=== PATIENT | female | born 1975 | race Caucasian/White ===

== ENCOUNTER 2017-08-03 05:42 | Emergency (ER) | payer MEDICAID ==
--- NOTE | 2017-08-03 06:35 | OBHP ---
Datetime: 08/03/2017 06:29 IP Adm Impression: Term, intrauterine ; No Active Labor IP Admit Plan: Discharge home Admit Comment, IP Provider: 42 @ 39 3 with hx of GDMA1 and Asthma presents today with compl aints of contractions. POBHx: SAB x 2, TOP x 1 PMHx: asthma, GDMA1 PSHX: none Social: negative x 3 ROS: negative. SVE: closed/long/hi A/P: early labor 1) pt was closed and genet q12 minutes. Pt advisd to return when contraction [id number]. 2) Discharge home. Pelvic Type - PN: Adequate Extremities - PN: Normal Abdomen - PN: Normal Back - PN: Normal Breast - PN: Normal Lungs - PN: Normal Heart - PN: Normal Thyroid - PN: Normal Neurologic - PN: Normal HEENT - PN: Normal General - PN: Normal Contraction Comments Provider: irregular Comments, ACOG Physical Exam: SVE: closed/long/hi EGA AdmitDate IP: 39.3 IP Chief Complaint: Uterine contractions Dilatation, Provider: closed Effacement, Provider: 0 Station, Provider: -3 Genitourinary Exam: Normal DTRs - PN: Normal
[2017-08-03 11:02] VITALS: BP 125/87; PULSE 104; TEMP 97.7
== END 2017-08-03 06:36 | disposition home or self-care (01) ==
LOC: C.EROB 05:42
DX: O47.1 False labor at or after 37 completed weeks of gestation (principal); Z3A.39 39 weeks gestation of pregnancy

== ENCOUNTER 2017-08-03 19:32 | Inpatient (IN) | payer MEDICAID ==
--- NOTE | 2017-08-03 20:15 | OBADHP ---
Datetime: 08/03/2017 20:09 Admit Comment, IP Provider: 40 @ 39 3/7 with hx of GDMA1 and Asthma presents today with compl aints of contractions everu 5 min increasingt intiensyt and fruqent, 12/30, dnies lof, vb, +FM. twas seen tory er today adn dxc home POBHx: SAB x 2, TOP x 1 PMHx: asthma, GDMA1 PSHX: none Social: negative x 3 ROS: negative. SVE: 03/29/0-2 A/P:42 y/o P0 @ 39.3 wks GA GDMA1 in early labr requesting therpeatuic rest -npo, ivf -iv pian mediation -reevlatin -nst, bpp -admissin labs -ivh Pelvic Type - PN: Adequate Extremities - PN: Normal Abdomen - PN: Normal Back - PN: Normal Breast - PN: Not Done Lungs - PN: Normal Heart - PN: Normal Thyroid - PN: Not Done Neurologic - PN: Normal HEENT - PN: Normal General - PN: Normal Presentation-Admit: Vertex FHR - Baseline A Provider: 150 Membranes, Provider: Intact Contraction Comments Provider: q 5 min Gestation - Est Wks by US: 39.3 Vital Signs Provider: Reviewed; Within Normal Limits IP Chief Complaint: Uterine contractions NICHD Variability Prov Fetus A: Moderate 6-25bpm FHR Category Provider Fetus A: Category I NICHD Decel Fetus A IP Provider: None Dilatation, Provider: 1 Effacement, Provider: 70 Station, Provider: -2 Genitourinary Exam: Normal DTRs - PN: Normal EGA AdmitDate IP: 39.3 IP Adm Impression: Term, intrauterine IP Admit Plan: Admit to unit Datetime: 08/03/2017 06:29 Comments, ACOG Physical Exam: SVE: closed/long/hi
[2017-08-03 20:16] VITALS: BMI 36.6
[2017-08-03] MEDS ORDERED: Lactated Ringer's 1,000 ML IV ONE (20:27)
[2017-08-03 20:40] LABS: BASO % 0.2 % (0.0-2.0); EOS # 0.1 K/uL (0.0-0.7); EOS % 0.5 % (0.0-4.0); HEMOGLOBIN 13.6 g/dL (11.0-16.0); LYMPH # 1.9 K/uL (1.0-4.3); LYMPH % 14.1 % (20.0-40.0); MEAN CORPUSCULAR HEMOGLOBIN 28.3 pg (27.0-31.0); MEAN CORPUSCULAR HGB CONC 34.1 g/dL (33.0-37.0); MEAN PLATELET VOLUME 7.9 fL (7.2-11.7); MONO # 0.7 K/uL (0.0-0.8); MONO % 5.3 % (0.0-10.0); NEUT % 79.9 % (50.0-75.0); NRBC % 0.2 % (0.0-2.0); RBC 4.83 Mil/uL (3.80-5.20); RED CELL DISTRIBUTION WIDTH 15.9 % (11.5-14.5); WHITE BLOOD COUNT 13.8 K/uL (4.8-10.8)
[2017-08-03 20:45] LABS: SQUAMOUS EPITHIAL 1 /hpf (0-5); URINE BILIRUBIN NEGATIVE (NEGATIVE); URINE BLOOD NEGATIVE (NEGATIVE); URINE CLARITY Clear (Clear); URINE COLOR Yellow (YELLOW); URINE GLUCOSE (UA) NORMAL (Normal); URINE LEUKOCYTE ESTERASE NEG Leu/uL (Negative); URINE PROTEIN NEGATIVE (NEGATIVE); URINE UROBILINOGEN NORMAL mg/dL (0.2-1.0)
[2017-08-03 20:52] LABS: ALBUMIN 3.3 g/dL (3.5-5.0); ALT/SGPT 24 U/L (9-52); AST/SGOT 21 U/L (14-36); BLOOD UREA NITROGEN 11 mg/dL (7-17); CALCIUM 9.4 mg/dl (8.6-10.4); GFR AFRICAN-AMERICAN > 60; GFR NON-AFRICAN AMERICAN > 60
[2017-08-03] MEDS ORDERED: DiphenhydrAMINE 50 mg/ml Inj IVP STA (21:13)
[2017-08-03] MEDS ORDERED: Nalbuphine 20 mg/ml Inj (1 ml) IVP PRN (21:15)
[2017-08-03] MEDS ORDERED: Nalbuphine 20 mg/ml Inj (1 ml) ONE (21:19)
[2017-08-04] MEDS ORDERED: Fentanyl/Bupivacaine HCl 250 ML EPI ONE (02:55)
--- NOTE | 2017-08-04 05:46 | OBPN ---
Datetime: 08/04/2017 05:40 IP Progress Impression: Normal progression of labor IP Progress Plan: Continue present management Membranes, Provider: Ruptured Contraction Comments Provider: 5 min FHR - Baseline A Provider: 150 Gestation - Est Wks by US: 39.4 Presentation-Admit: Vertex IP Progress Note Comment: pt seen ane edaemiend s/p epidural EFM: 150/mod angie period of min varilayt mproved with ivh, left lateral decubmitus postin TOOC: q 5 min A/P P0 @ 39.4 wks GA GDMA 1 in active labor -cont current managmeent Vital Signs Provider: Reviewed; Within Normal Limits FHR Category Provider Fetus A: Category I NICHD Variability Prov Fetus A: Moderate 6-25bpm Dilatation, Provider: 8 Effacement, Provider: 90 Station, Provider: 0 Datetime: 08/03/2017 20:09 NICHD Decel Fetus A IP Provider: None
[2017-08-04] MEDS ORDERED: Lactated Ringer's 1,000 ML IV SCH (07:30)
[2017-08-04] MEDS ORDERED: Lidocaine 2% MPF (5 ml) Inj ONE (08:48)
[2017-08-04] MEDS ORDERED: Oxytocin 30 UNIT 30 UNITS/500 ML BAG IV PRN (09:54)
[2017-08-04] MEDS ORDERED: Oxytocin 30 UNIT 30 UNITS/500 ML BAG IV ONE (09:57)
--- NOTE | 2017-08-04 12:04 | OBPN ---
Datetime: 08/04/2017 11:59 IP Progress Impression: Normal progression of labor IP Procedures: Sterile Vag Exam IP Progress Plan: Continue present management; Anticipate Vaginal Delivery IP Progress Note Comment: Patient was initially seen and examined at 0730 hours: at that tme very co mfortable - S/P epidrual Cervical exam at 0730 hours: 10cm/100/0 station. F.S. = 107 mg/dL Decision was made to augment with pitocin, this was started at 0955 hours Patient now pushing. Assessment: 42 y.o. P0, 39w 4d, A1GDM. Nearing end of Stage 1 of labor. Category 1 tracing. Clinic ally stable. Plan: 1) Anticipate vaginal delivery
--- NOTE | 2017-08-04 14:10 | OBDS ---
DELIVERY PERSONNEL Delivery Doctor: Delbert Sneed MD Snaker: Yajaira Mulligan RN MATERNAL INFORMATION Delivery Anesthesia: Epidural Medications in Delivery: pitocin 20units Estimated Blood Loss (ml): 350 Placenta Cultured: No Maternal Complications: Other Other Maternal Complications: GDM diet control Provider Comments: Uncomplicated vaginal delivery, live female, SRIDEVI, weight 7lb 8oz, tight nuchal co rd x 1 - doubly clamped and cut; 's 9/9. handed to ordnance equipment worker in attendance. Spontaneou s delivery of placenta; grossly normal, 3 vessel cord. Uterine exploration performed; uterus contrac evangelist and firm. Cervix, vagina and perineum inspected - no extensions - repair as above. Patient procedure well. Hemostasis assured. Mother, infant and father bonding. All in stable. cond ition LABOR SUMMARY EDC: 08/07/2017 00:00 No. Babies in Womb: 0 Attempted: No Labor Anesthesia: Epidural LABOR INFORMATION Onset of Labor: 08/04/2017 01:38 Complete Dilatation: 08/04/2017 07:30 Oxytocin: Augmentation Group B Beta Strep: Negative Steroids Given: None Reason Steroids Not Administered: Not Applicable MEMBRANES Membranes Rupture Method: Spontaneous Rupture of Membranes: 08/04/2017 05:39 Length of Rupture (hrs): 6.57 Amniotic Fluid Color: Light Meconium Amniotic Fluid Amount: Small Amniotic Fluid Odor: Normal STAGES OF LABOR Stage 1 hrs: 5 Stage 1 min: 52 Stage 2 hrs: 4 Stage 2 min: 43 Stage 3 hrs: 0 Stage 3 min: 13 Total Time in Labor hrs: 10 Total Time in Labor min: 48 VAGINAL DELIVERY Episiotomy: None Laceration Extension: Second Degree Laceration Type: Perineal; Vaginal Other Laceration: vaginal - left lateral Laceration Repair: Yes Laceration Repair Note: 2-0 chromic - vaginal/ perineal; 3-0 chromic - skin in routine fashion. Hem ostasis assured. Patient tolerated procedure well. In stable condition Initial Vag Sponge Count: 10 Final Vag Sponge Count: 10 Initial Vag Sharps Count: 0 Final Vag Sharps Count: 3 Sponge Count Correct: Yes Sharps Count Correct: Yes Count Comment: Correct BABY A INFORMATION Delivery Date/Time: 08/04/2017 12:13 Method of Delivery: Vaginal Born in Route : No : N/A Forceps: N/A Vacuum Extraction: N/A Shoulder Dystocia : No SHOULDER DYSTOCIA BABY A Infant Delivery Date/Time: 08/04/2017 12:13 PRESENTATION/POSITION BABY A Presentation: Cephalic Cephalic Presentation: Vertex Vertex Position: Right Occipital Anterior Breech Presentation: N/A PLACENTA INFORMATION BABY A Placenta Delivery Time : 08/04/2017 12:26 Placenta Method of Delivery: Spontaneous Placenta Status: Delivered SCORES BABY A Heart Rate 1 min: >100 bpm Resp Effort 1 min: Good Cry Reflex Irritability 1 min: Cough or Sneeze or Pulls Away Muscle Tone 1 min: Active Motion Color 1 min: Body [place], Extremities Blue SCORE 1 MIN: 9 Heart Rate 5 min: >100 bpm Resp Effort 5 min: Good Cry Reflex Irritability 5 min: Cough or Sneeze or Pulls Away Muscle Tone 5 min: Active Motion Color 5 min: Body [place], Extremities Blue SCORE 5 MIN: 9 INFANT INFORMATION BABY A Gestational Age at Delivery: 39.4 Gestational Status: Term Infant Outcome : Liveborn Condition : Stable Sex: Female IDENTIFICATION/MEDS BABY A ID Band Number: [id number] ID Band Location: Left Leg; Left Arm Sensor Applied: Yes Sensor Number: [id number] Sensor Location : Cord Clamp Vitamin K Given : Not Given Erythromycin Given: Not Given WEIGHT/LENGTH BABY A Infant Birthweight (gms): 3390 Weight (lb): 7 Weight (oz): 8 Infant Length Inches: 20.00 Length cms: 50.8 CORD INFORMATION BABY A No. Cord Vessels: 3 Nuchal Cord : Around Neck x1, Tight Cord Blood Taken: Yes Suction: Mouth; Nose ASSESSMENT BABY A Infant Complications: Decreased Variability; Multiple Late Decels; Meconium
[2017-08-05 08:22] LABS: HEMOGLOBIN 11.7 g/dL (11.0-16.0); MEAN CELL VOLUME 83.8 fL (81.0-99.0); MEAN CORPUSCULAR HEMOGLOBIN 28.7 pg (27.0-31.0); MEAN CORPUSCULAR HGB CONC 34.3 g/dL (33.0-37.0); MEAN PLATELET VOLUME 7.6 fL (7.2-11.7); RBC 4.07 Mil/uL (3.80-5.20); RED CELL DISTRIBUTION WIDTH 15.6 % (11.5-14.5); WHITE BLOOD COUNT 17.6 K/uL (4.8-10.8)
[2017-08-05 08:53] VITALS: RESP 20
[2017-08-05] MEDS: Multiple Vitamins Tab PO SCH (10:22)
[2017-08-05] MEDS: Benzocaine/Menthol 20%-0.5% Topical Spray (60 ml) TOP SCH ×2 (13:00→17:39)
--- NOTE | 2017-08-05 17:05 | OBPPN ---
Datetime: 08/05/2017 15:26 PP Pain Prov: Within normal limits PP Nausea Prov: Denies PP Flatus Prov: Yes PP BM Prov: No PP Heart Prov: Normal PP Lungs Prov: Normal PP Abdomen/Uterus Prov: Normal PP Lochia Prov: Normal PP Extremities Prov: Normal PP Progress Prov: Normal PP Impression Prov: Normal progression PP Plan Prov: Continue present management PP Progress Note Prov: Patient was seen and examined at bedside. Patient reports that she is doing w ell with pain well-controlled. Patient admits to moderate lochia, passing flatus urinating without di fficulties and left leg heaviness (2/2 to epidural effect). Patient is ambulating and tolerating diet . Patient denies fever, chills, nausea, vomiting, abdominal pain, dizziness and calf tenderness. Physical Exam: Gen: NAD, AAOx3 Cardio: RRR, +S1, S2 Pulm: CTA bilaterally Abdomen: Soft, non-tender, +BS , fundus is firm and below the umbilicus Ext: No cyanosis, no clubbing and no edema VS: WNL as stated in VS table above Labs: 13.8>13.6/40.1<201 17.6>11.7/34.1<200 B-, Rubella immune A/P 42y/o at 39 3/7 weeks GDMA1, who is now , S/P , PPD #1 1. Afebrile, stable 2. Pain is well-controlled 3. Encourage PO hydration and ambulation 4. Encourage 5. Continue present management 6. Female hyperbilirubemia, with triple therapy treatment 7. Possible D/C tomorrow Plans and management discussed with attending, Dr. Aubrey Valdes, DO, PGY-1 Vital Signs Provider PP: Reviewed; Within Normal Limits
[2017-08-06 08:29] LABS: BASO % 0.3 % (0.0-2.0); EOS # 0.2 K/uL (0.0-0.7); EOS % 1.9 % (0.0-4.0); HEMOGLOBIN 10.8 g/dL (11.0-16.0); LYMPH # 2.1 K/uL (1.0-4.3); MEAN CELL VOLUME 83.9 fL (81.0-99.0); MEAN CORPUSCULAR HEMOGLOBIN 28.9 pg (27.0-31.0); MEAN CORPUSCULAR HGB CONC 34.4 g/dL (33.0-37.0); MEAN PLATELET VOLUME 7.6 fL (7.2-11.7); MONO # 0.6 K/uL (0.0-0.8); MONO % 5.5 % (0.0-10.0); NEUT # 8.6 K/uL (1.8-7.0); NEUT % 74.3 % (50.0-75.0); NRBC % 0.1 % (0.0-2.0); RBC 3.73 Mil/uL (3.80-5.20); RED CELL DISTRIBUTION WIDTH 16.2 % (11.5-14.5); WHITE BLOOD COUNT 11.6 K/uL (4.8-10.8)
[2017-08-06] MEDS: Multiple Vitamins Tab PO SCH (10:38)
[2017-08-06 17:28] VITALS: BP 108/72; PULSE 93; O2SAT 99
[2017-08-06 23:09] VITALS: TEMP 97
--- NOTE | 2017-08-07 11:26 | OBDCSUM ---
Datetime: 08/06/2017 14:28 Discharged to, Provider: Home Disch Instr Activity: Normal activity Disch Instr Diet: Regular Discharge Instructions, Provider: Routine instructions given Discharge Diagnosis, Provider: Term Delivered Discharge Time: 08/06/2017 14:28 Follow up in weeks, Provider: 6 weeks Disch Referrals: None Contraception discussed, Prov: Yes Disch Activity Restrictions: No exercising; No lifting; Minimize walking Discharge Comment, Provider: Pt seen and doing well. Currently no complaints at this time. She is am bulating tolerating PO diet. Hx of GDMA1. Pt is Rh-, she was given Rhogam 08/04/17/ Signature: Silvio Rdz MD Datetime: 08/06/2017 14:03 Discharged to, Provider: Home Disch Instr Activity: Normal activity Disch Instr Diet: Regular Discharge Instructions, Provider: Routine instructions given Discharge Diagnosis, Provider: Term Delivered Discharge Time: 08/06/2017 14:03 Follow up in weeks, Provider: 6 weeks Disch Referrals: None Contraception discussed, Prov: Yes Disch Activity Restrictions: No exercising; No lifting Dr Signature: Demetrius RDZ Datetime: 08/03/2017 06:26 Discharge Instructions, Provider: Routine instructions given Discharge Diagnosis, Provider: Term Delivered Contraception discussed, Prov: Yes
--- NOTE | 2017-08-07 11:26 | OBDCSUM ---
Datetime: 08/06/2017 14:03 Discharged to, Provider: Home Disch Instr Activity: Normal activity Disch Instr Diet: Regular Discharge Instructions, Provider: Routine instructions given Discharge Diagnosis, Provider: Term Delivered Discharge Time: 08/06/2017 14:03 Follow up in weeks, Provider: 6 weeks Disch Referrals: None Contraception discussed, Prov: Yes Disch Activity Restrictions: No exercising; No lifting Dr Signature: KAJALS Datetime: 08/03/2017 06:26 Discharge Instructions, Provider: Routine instructions given Discharge Diagnosis, Provider: Term Delivered Contraception discussed, Prov: Yes
== END 2017-08-06 17:18 | disposition home or self-care (01) | DRG 372 ==
LOC: C.EROB 19:32 → C.4D 20:07 → C.4M 08-04 15:33
PROVIDERS: ADMIT Obstetrics & Gynecology; ATTEND Obstetrics & Gynecology
PROC: 0KQM0ZZ Repair Perineum Muscle, Open Approach (ICD-10-PCS; principal; 2017-08-04)
PROC: 10E0XZZ Delivery of Products of Conception, External Approach (ICD-10-PCS; 2017-08-04)
DX: O24.420 Gestational diabetes mellitus in childbirth, diet controlled (principal); O99.42 Diseases of the circulatory system complicating childbirth; O76 Abnormality in fetal heart rate and rhythm complicating labor and delivery; O70.1 Second degree perineal laceration during delivery; O69.1XX0 Labor and delivery complicated by cord around neck, with compression, not applicable or unspecified; J45.909 Unspecified asthma, uncomplicated; O99.52 Diseases of the respiratory system complicating childbirth; Z3A.39 39 weeks gestation of pregnancy; Z37.0 Single live birth